=== PATIENT | male | born 1930 | race Caucasian/White ===

== ENCOUNTER 2017-09-06 13:27 | Inpatient (IN) | payer OTHER ==
[~2017-09-06] VITALS: Ht 180.3 cm; Wt 90.3 kg
--- NOTE | ~2017-09-06 | PROC ---
[facility] [address] [place] [address] PROCEDURE REPORT Name: PRASHANT ZUNIGA Room: [address] IN ..#: [id number] Admission: 09/06/17 Attend Phys: Celeste Calvert MD Discharge: Date of : [birth year] Report #: [id number] THIS REPORT FOR: //name// For GI procedure report, please see Provation report in Perceptive 7 content. By: [id number] Records Staff JOHN /KWABENA
[~2017-09-06 13:27] MED LIST: ASPIR 8181 MG; AZOR 10-40 MG1 EACH; BACTRIM DS TAB1 EACH PO; BENICAR40 MG PO; BYSTOLIC 5 MG5 M1 PO; CYMBALTA60 MG PO; DEPAKOTE 250MG250 M1 PO; FENOFIBRATE160 MG PO; FLOMAX0.4 MG PO; HYDROCODONE-AP1 EAC6 PO; LASIX 20 MG TAB20 MG PO; LUMIGAN2.5 M1 OP; MIRAPEX0.125 MG PO; PENTOXIFYLLINE400 MG PO; PRADAXA75 MG PO; PRESERVISION A1 EAC2 PO; PROTONIX40 M1 PO; ZOCOR20 MG PO
[2017-09-06 13:40] VITALS: BP 116/78
[2017-09-06 14:16] LABS: ABSOLUTE LYMPHOCYTES 1.2 thou/uL (0.8-5.3); ABSOLUTE MONOCYTES 0.4 thou/uL (0.0-1.2); ABSOLUTE NEUTROPHILS 4.5 thou/uL (1.6-8.1); BASOPHILS 0.3 %; EOSINOPHILS 0.2 %; HEMATOCRIT 41.3 % (42.0-52.0); HEMOGLOBIN 13.5 gm/dL (14.0-18.0); MCH 31.7 pg (26.0-34.0); MCHC 32.7 g/dL (28.0-37.0); MCV 96.9 fL (80.0-100.0); MONOCYTES 6.2 %; MPV 9.1 fl. (7.2-11.1); NUCLEATED RBCS 0 /100WBC; PLATELET COUNT* 137 thou/uL (150-400); POLYS 73.3 %; RBC 4.26 mil/uL (4.50-6.00); RDW-CV 14.6 % (10.5-14.5); WBC 6.1 thou/uL (4.0-11.0)
[2017-09-06 14:24] LABS: CREATININE 3.5 mg/dL (0.6-1.3); POTASSIUM 4.4 mmol/L (3.5-5.1)
[2017-09-06 14:27] LABS: TROPONIN-I LEVEL 0.12 ng/mL (<0.06)
[2017-09-06 14:31] LABS: APTT 33.8 Seconds (25.0-31.3); INR 1.7; PROTIME 16.3 Seconds (9.20-11.50)
--- NOTE | 2017-09-06 15:47 | EKG ---
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: : 1930 Requested By: Emilie Garcia Order Number: [id number] : Bradly Pisano Measurements Intervals [place] Rate: 114 P: [place]: QRS: 57 QRSD: 93 T: 226 QT: 280 QTc: 386 Interpretive Statements Atrial fibrillation Borderline low voltage, extremity leads Borderline repolarization abnormality Compared to ECG 09/03/2017 10:02:27 No significant changes Electronically Signed On 09-06-2017 15:47:18 HELPDES[employer] TECHNICIAN by Bradly Pisano [email or web address] <ELECTRONICALLY SIGNED> By: Bradly Pisano MD, [facility] 09/06/17 1547 1355 1355 Bradly Pisano MD, [facility] /EPI
[2017-09-06 20:32] LABS: CALCIUM 7.5 mg/dL (8.5-10.1); CREATININE 3.1 mg/dL (0.6-1.3)
[2017-09-06 20:41] VITALS: BP 76/49
[2017-09-06 21:44] LABS: BE -9.4 mmol/L (-2 to +3); HCO3 14.7 mmol/L (22.0-26.0); PCO2 27.2 mmHg (35.0-45.0); PO2 86.1 mmHg (75.0-100.0)
[2017-09-06 22:30] VITALS: BP 75/48
[2017-09-06 23:00] VITALS: BP 86/59
[2017-09-06 23:30] VITALS: BP 84/59
[2017-09-06 23:50] LABS: URINE BLOOD NEGATIVE (Negative); URINE CLARITY CLEAR; URINE COLOR DARK YELLOW; URINE GLUCOSE-RANDOM NEGATIVE (Negative); URINE KETONES TRACE (Negative); URINE LEUKOCYTES-REFLEX NEGATIVE (Negative); URINE NITRITE-REFLEX NEGATIVE (Negative); URINE PROTEIN 1+ (Negative); URINE SPECIFIC GRAVITY 1.025 (1.005-1.030)
[2017-09-06 23:51] LABS: URINE BILIRUBIN 2+ (Negative)
[2017-09-06 23:53] LABS: ICTOTEST (BILI CONFIRMATORY) Negative (Negative)
[2017-09-07] VITALS (25 sets, daily range): BP systolic 74–167; BP diastolic 43–142
[2017-09-07 03:12] LABS: URINE POTASSIUM-RANDOM 71.5 mmol/L
[2017-09-07 04:20] LABS: HEMATOCRIT 33.5 % (42.0-52.0); MCH 31.9 pg (26.0-34.0); MCHC 33.2 g/dL (28.0-37.0); MCV 96.3 fL (80.0-100.0); RBC 3.48 mil/uL (4.50-6.00); RDW-CV 14.6 % (10.5-14.5); WBC 5.8 thou/uL (4.0-11.0)
[2017-09-07 04:24] LABS: HEMOGLOBIN 11.1 gm/dL (14.0-18.0)
[2017-09-07 04:36] LABS: CALCIUM 7.4 mg/dL (8.5-10.1); CREATININE 3.1 mg/dL (0.6-1.3); MAGNESIUM 1.3 mg/dL (1.8-2.4); TOTAL BILIRUBIN 1.3 mg/dL (<0.1-1.0); TOTAL PROTEIN 4.9 g/dL (6.4-8.2)
[2017-09-07 04:58] LABS: APTT 40.6 Seconds (25.0-31.3); INR 2.1
[2017-09-07 16:04] LABS: ALBUMIN 2.4 g/dL (3.4-5.0); CALCIUM 7.5 mg/dL (8.5-10.1); CREATININE 2.9 mg/dL (0.6-1.3); MAGNESIUM 1.4 mg/dL (1.8-2.4); PHOSPHORUS* 2.8 mg/dL (2.5-4.9); POTASSIUM 3.9 mmol/L (3.5-5.1); TOTAL BILIRUBIN 1.3 mg/dL (<0.1-1.0); TOTAL PROTEIN 5.2 g/dL (6.4-8.2)
--- NOTE | 2017-09-07 16:20 | 2DMMODE ---
[place] [address] 2 D/M-MODE ECHOCARDIOGRAM Name: PRASHANT ZUNIGA Room: [address] IN [facility]#: [id number] Admission: 09/06/17 Attend Phys: Celeste Calvert, Discharge: Date of : [birth year] Date of Service: 09/07/17 1620 Report #: [id number] THIS REPORT FOR: //name// APPROVED REPORT Study performed: 09/07/2017 10:15:09 EXAM: Comprehensive 2D, Doppler, and color-flow Echocardiogram Patient Location: In-Patient Room #: 006 Status: routine BSA: 2.02 HR: 95 bpm BP: 85/59 mmHg Rhythm: Atrial Fibrillation Other Information Study Quality: Good Indications Hypotension Dyspnea 2D Dimensions LVEF(%): 62.38 (>50%) IVSd: 11.35 (7-11mm) LVOT Diam: 20.97 (18-24mm) LVDd: 48.16 mm PWd: 11.20 (7-11mm) Ascending Ao: 36.58 (22-36mm) LVDs: 31.93 (25-40mm) Aortic Root: 37.64 mm Kumar's LVEF: 62.38 % Volumes Left Atrial Volume (Systole) LA ESV Index: 75.30 mL/m2 Aortic Valve AoV Peak Geovanny.: 1.34 m/s AO Peak Gr.: 7.14 mmHg LVOT Max P.65 mmHg AO Mean Gr.: 4.37 mmHg LVOT Mean P.33 mmHg LVOT Max V: 0.81 m/s AO V2 VTI: 18.82 cm LVOT Mean V: 0.53 m/s AILYN (VTI): 1.95 cm2 LVOT V1 VTI: 10.64 [place] [address] 2 D/M-MODE ECHOCARDIOGRAM Name: PRASHANT ZUNIGA Room: [address] IN .R.#: [id number] Admission: 09/06/17 Attend Phys: Celeste Calvert, Discharge: Date of : [birth year] Date of Service: 09/07/17 1620 Report #: [id number] E/A Ratio: 2.06 MV Decel. Time: 161.61 ms MV E Max Geovanny.: 1.06 m/s MV PHT: 46.87 ms MVA (PHT): 4.69 cm2 TDI E/Lateral E': 6.63 E/Medial E': 10.60 Medial E' Geovanny.: 0.10 m/s Lateral E' Geovanny.: 0.16 m/s Pulmonary Valve PV Peak Geovanny.: 0.86 m/s PV Peak Gr.: 2.96 mmHg Tricuspid Valve TR Peak Gr.: 43.02 mmHg RVSP: 48.00 mmHg Left Ventricle The left ventricle is normal size. There is normal LV segmental wall motion. There is normal left ventricular wall thickness. Left ventricular systolic function is normal. LVEF is 50-55%. This study is not technically sufficient to allow evaluation of the LV diastolic function due to atrial fibrillation. Right Ventricle Right ventricle is moderately dilated. The right ventricular systolic function is normal. Atria Left atrium is severely dilated. Right atrium is severely dilated. Aortic Valve Mild aortic valve sclerosis. Trace aortic regurgitation. Mild aortic stenosis. Mitral Valve The mitral valve is normal in structure. Trace mitral regurgitation. No evidence of mitral valve stenosis. Tricuspid Valve The tricuspid valve is normal in structure. Moderate tricuspid regurgitation. The RVSP is 45-50 mmHg. Pulmonic Valve The pulmonary valve is normal in structure. [place] [address] 2 D/M-MODE ECHOCARDIOGRAM Name: PRASHANT ZUNIGA Room: [address]#: [id number] Admission: 09/06/17 Attend Phys: Celeste Calvert, Discharge: Date of : [birth year] Date of Service: 09/07/17 1620 Report #: [id number] valvular regurgitation. Great Vessels The aortic root is normal in size. IVC is not well visualized. Pericardium There is no pericardial effusion. <Conclusion> The left ventricle is normal size. There is normal left ventricular wall thickness. Left ventricular systolic function is normal. LVEF is 50-55%. This study is not technically sufficient to allow evaluation of the LV diastolic function due to atrial fibrillation. Right ventricle is moderately dilated. Left atrium is severely dilated. Right atrium is severely dilated. Moderate tricuspid regurgitation. The RVSP is 45-50 mmHg. <ELECTRONICALLY SIGNED> By: José Villanueva MD, FACC 09/07/17 1620 19 19 José Villanueva MD, FACC /INF
[2017-09-08] VITALS (40 sets, daily range): BP systolic 94–141; BP diastolic 47–97
[2017-09-08 06:49] LABS: ALBUMIN 2.4 g/dL (3.4-5.0); CALCIUM 7.3 mg/dL (8.5-10.1); CREATININE 2.5 mg/dL (0.6-1.3); TOTAL BILIRUBIN 1.2 mg/dL (<0.1-1.0); TOTAL PROTEIN 4.9 g/dL (6.4-8.2)
[2017-09-08 12:06] LABS: HEPATITIS B SURFACE AG Negative (Negative)
[2017-09-09] VITALS (28 sets, daily range): BP systolic 103–151; BP diastolic 59–100
[2017-09-09 04:55] LABS: HEMATOCRIT 28.5 % (42.0-52.0); HEMOGLOBIN 9.4 gm/dL (14.0-18.0); MCH 31.5 pg (26.0-34.0); MCHC 32.9 g/dL (28.0-37.0); MCV 95.9 fL (80.0-100.0); MPV 8.9 fl. (7.2-11.1); RBC 2.97 mil/uL (4.50-6.00); RDW-CV 15.1 % (10.5-14.5); WBC 5.7 thou/uL (4.0-11.0)
[2017-09-09 05:40] LABS: CALCIUM 7.6 mg/dL (8.5-10.1); CREATININE 1.9 mg/dL (0.6-1.3); POTASSIUM 3.5 mmol/L (3.5-5.1)
--- NOTE | 2017-09-09 06:08 | CON ---
[address] [address] CONSULTATION Name: EFRAINPRASHANT Shanita Room: [address] IN .R.#: [id number] Admission: 09/06/17 Attend Phys: Celeste Calvert MD Discharge: Date of : [birth year] Report #: [id number] THIS REPORT FOR: //name// CC: Eloy Banks DATE OF SERVICE: 09/08/2017 INFECTIOUS DISEASE CONSULTATION ATTENDING PHYSICIAN: Dr. Calvert REASON FOR EVALUATION: Pneumonitis, abdominal pain, recent laparoscopic cholecystectomy. HISTORY OF PRESENT ILLNESS: Chart reviewed, patient examined. This is an 87 year old, who was recently diagnosed with symptomatic cholelithiasis. On 09/03/2017, underwent laparoscopic cholecystectomy, presented to the Emergency Room with somewhat of progressive dyspnea as well as diffuse abdominal pain. In attempt of questioning, it is not clear that it eased up, only worsen. He does have recent anorexia, perhaps some weight loss. There is no evidence of fevers, due to concerns in lactic acidemia, increased oxygen requirements, he was placed in Intensive Care Unit. He was resuscitated, put on broad-spectrum therapy with piperacillin, tazobactam, more recently vancomycin. He notes he is somewhat improved, although remains tenuous. He is not encephalopathic. ALLERGIES: None known. CURRENT MEDICINES: Vancomycin, tamsulosin, enoxaparin, hydrocortisone, vasopressin as needed, frame of Taxol, multivitamin, divalproex, Zosyn. PAST MEDICAL HISTORY: History of hypertension, peripheral vascular disease, previous left lower extremity stenting, history of renal insufficiency, distal ischemia. SOCIAL HISTORY: Nonsmoker, no ethanol. FAMILY HISTORY: Noncontributory. REVIEW OF SYSTEMS: As above. Generalized diarrhea. PHYSICAL EXAMINATION: GENERAL: Appears chronically ill, undernourished, is in moderate distress secondary to pain. VITAL SIGNS: Temperature 98.4, pulse 100, respirations 14, [place] [address] CONSULTATION Name: PRASHANT ZUNIGA Room: [address]#: [id number] Admission: 09/06/17 Attend Phys: Celeste Calvert MD Discharge: Date of : [birth year] Report #: [id number] 127/72. SKIN: Warm, dry, no rashes. HEENT: Unremarkable. NECK: Supple. LUNGS: Diminished breath sounds, does have some basilar rales. Few crackles. HEART: Appears to be regular, borderline tachycardic. No appreciated murmur. ABDOMEN: Somewhat distended. There are no overt peritoneal signs. There is a healing stab sites with the previous laparoscopic cholecystectomy. There is some tenderness, although it is not exquisite. GENITOURINARY AND RECTAL: Deferred. LABORATORY DATA: Chest x-ray, minimal free air consistent with the patient recent cholecystectomy, prominence of the hilum. Blood cultures sterile thus far. Electrolytes: Sodium 138, potassium 4, chloride 104, bicarbonate is 21, anion gap of 13. BUN and creatinine 51 and 2.5, glucose of 141. LFTs unremarkable. Albumin 2.4, total protein of 4.9, estimated GFR of 24. Prealbumin 9.0. Review of showed chronic cholecystitis with cholelithiasis. Echo, EF of 50-55%, severely dilated biatrial as well as right ventricle, moderate tricuspid regurgitation. Lactic acid initially was 4.6, repeat was 2.0. Initial white count 6.1, H and H 13.5 and 41.3, platelets of 137. CT abdomen and pelvis confirmed scattered small amount of free air and trace ascites. ASSESSMENT: 1. Pneumonitis, probable aspiration. Poor effort due to abdominal related pain that he states has been ongoing. I agree with empiric combination therapy, can entirely exclude an intraabdominal process, left to monitor expectantly. At this point, I do not think there is any surgical intervention required. We will await pending results. Increase activity as allowed, optimize his nutritional status. <ELECTRONICALLY SIGNED> By: Jared De Souza MD 09/09/17 0608 1632 2105Joterrell De Souza MD /nt
--- NOTE | 2017-09-09 09:06 | CON ---
[address] [address] CONSULTATION Name: EFRAINPRASHANT Shanita Room: [address] IN ..#: [id number] Admission: 09/06/17 Attend Phys: Celeste Calvert MD Discharge: Date of : [birth year] Report #: [id number] THIS REPORT FOR: //name// CC: Eloy Banks DATE OF SERVICE: 09/07/2017 INDICATION: Elevated troponin. HISTORY OF PRESENT ILLNESS: The patient is a very pleasant 87-year-old gentleman who had laparoscopic cholecystectomy 4 days ago. The patient went home, apparently continued to have some abdominal pain and poor p.o. intake. He was readmitted to the hospital yesterday with hypotension and elevated lactate, BUN and creatinine. The patient had a bump in his troponins in this setting. He has chronic atrial fibrillation, but no history of coronary artery disease. He does have severe peripheral vascular disease. In this setting, he denied any significant shortness of breath or chest pain. He was given IV fluids for rehydration and his symptoms have improved. His blood pressure remains borderline. He was transiently treated with norepinephrine drip. 12-lead EKG shows atrial fibrillation with some nonspecific T-wave inversion in the inferolateral leads. PAST MEDICAL HISTORY: 1. Chronic atrial fibrillation. 2. Chronic anticoagulation. 3. History of hypertension. 4. Peripheral vascular disease with intervention to the left lower extremity. 5. Chronic nonhealing ulcer, left big toe. 6. Cholecystectomy 4 days ago laparoscopically. 7. Remote history of tobacco use. 8. GERD. 9. BPH. 10. Hyperlipidemia. FAMILY HISTORY: Noncontributory. SOCIAL HISTORY: The patient quit smoking remotely. He does not drink alcohol. He has a supportive family. REVIEW OF SYSTEMS: Significant for dyspnea, shortness of breath without orthopnea, nausea, vomiting and abdominal discomfort, mild constipation. Otherwise, 14-point review [place] [address] CONSULTATION Name: EFRAINPRASHANT Shanita Room: [address]#: [id number] Admission: 09/06/17 Attend Phys: Celeste Calvert MD Discharge: Date of : [birth year] Report #: [id number] PHYSICAL EXAMINATION: VITAL SIGNS: Blood pressure 96/61, pulse in the 90s and irregular. GENERAL: This is a pleasant elderly male, who is in no distress. Mood and affect appropriate. HEENT: O2 nasal cannula in place. Extraocular muscles intact. Mucous membranes are moist. NECK: Shows no jugular venous distention. I do not appreciate carotid bruit. CHEST: Reveals diminished breath sounds with prolonged expiration without wheezes or rales. CARDIOVASCULAR: Reveals an irregularly irregular rhythm without gallop or murmur. ABDOMEN: Reveals normal bowel sounds. The abdomen is minimally tender without rebound. EXTREMITIES: Show palpable radial pulses. Dorsalis pedis and posterior tibial is not palpable. There are chronic skin changes noted in the feet and lower extremities are cool to touch. There is a nonhealing ulcer on the left great toe. LABORATORY DATA: Reviewed. Sodium 135, potassium 4.0, chloride 103, bicarb 19, BUN 53, creatinine 3.1, serum glucose 117. Troponin on arrival 0.12, subsequently 0.37, 0.69, and now 0.65. White blood cell count 5.8, hemoglobin 11.1, platelet count 119,000. Portable chest x-ray shows no acute process. Echocardiogram ordered and pending. IMPRESSION AND RECOMMENDATIONS: 1. Elevated troponin. Doubt this is due to any acute coronary syndrome as the patient is asymptomatic. He did have transient hypotension, felt to be due to the volume depletion due to poor oral intake postoperatively. This has improved. He is without other cardiac complaint. At this point in time, I would follow up with echocardiogram. I do not recommend further stress testing as he did have recent stress test preoperatively that was low risk. 2. Peripheral vascular disease. Continue to follow with wound care as an outpatient. 3. Hypertension. The patient's blood pressure is somewhat low normal presently. We will follow clinically and make adjustments as needed. 4. Chronic renal insufficiency with acute renal failure. The patient [place] [address] CONSULTATION Name: PRASHANT ZUNIGA Room: [address] IN ..#: [id number] Admission: 09/06/17 Attend Phys: Celeste Calvert MD Discharge: Date of : [birth year] Report #: [id number] 5. Chronic atrial fibrillation, rate adequately controlled at this time. The patient is chronically anticoagulated with Pradaxa. No changes at this time. <ELECTRONICALLY SIGNED> By: José Villanueva MD, FACC 09/09/17 0906 1330 1907Miccristo Villanueva MD, FACC /nt
--- NOTE | 2017-09-09 11:30 | CON ---
[address] [address] CONSULTATION Name: FELICIAYAZMINPRASHANT Shanita Room: [address] IN .R.#: [id number] Admission: 09/06/17 Attend Phys: Celeste Calvert MD Discharge: Date of : [birth year] Report #: [id number] THIS REPORT FOR: //name// CC: Eloy Banks DATE OF SERVICE: 09/06/2017 CHIEF COMPLAINT: Fatigue. HISTORY OF PRESENT ILLNESS: This is an 87-year-old man who underwent laparoscopic cholecystectomy on 09/03/2017. He was discharged the next day without complications. He has been at home. His family notes that he has not eaten or drank much since he has been home. He has had very little appetite. He was then feeling very fatigued and he was brought to the Emergency Department. He was found to have a lactate of 5. White count is normal. Hemoglobin is within normal limits. CT of the abdomen and pelvis demonstrates some scattered free air, which is a normal finding after laparoscopic surgery. He does feel better after he has received IV fluids. PAST MEDICAL HISTORY: Includes atrial fibrillation, coronary artery disease. PAST SURGICAL HISTORY: He has had the above-mentioned laparoscopic cholecystectomy. SOCIAL HISTORY: He lives at home. No tobacco use. PHYSICAL EXAMINATION: GENERAL: He is awake, alert, in no acute distress. He does appear somewhat tired. HEENT: His extraocular movements are intact. Sclerae without icterus. NECK: Supple. CARDIOVASCULAR: Regular rate and rhythm. CHEST: Firm bilaterally. ABDOMEN: Soft. He has incisions, which are healing well. He has appropriate tenderness around his incisions. EXTREMITIES: Without clubbing or cyanosis. NEUROLOGIC: Grossly intact. SKIN: Without rash or jaundice. LABORATORY FINDINGS: Lactate is now 4.6. Sodium is 134, creatinine is 3.5, total bilirubin is 2.0, alkaline phosphatase 72, ALT 32. ASSESSMENT AND PLAN: This is an 87-year-old man after laparoscopic cholecystectomy. I suspect that he became hypovolemic [place] [address] CONSULTATION Name: PRASHANT ZUNIGA Room: [address] IN [facility]#: [id number] Admission: 09/06/17 Attend Phys: Celeste Calvert MD Discharge: Date of : [birth year] Report #: [id number] intake. He is responding to IV fluids. He will be admitted to ICU and monitored. I do not see any complication from surgery at this point. We will follow along with you. <ELECTRONICALLY SIGNED> By: Eloy Singh MD 09/09/17 1130 1708 1745Joemerald Singh MD /nt
[2017-09-10] VITALS (12 sets, daily range): BP systolic 113–150; BP diastolic 67–91
[2017-09-10 05:39] LABS: HEMATOCRIT 28.4 % (42.0-52.0); HEMOGLOBIN 9.4 gm/dL (14.0-18.0); MCH 31.5 pg (26.0-34.0); MCV 95.4 fL (80.0-100.0); MPV 8.8 fl. (7.2-11.1); RBC 2.98 mil/uL (4.50-6.00); WBC 5.7 thou/uL (4.0-11.0)
[2017-09-10 06:33] LABS: ALBUMIN 2.5 g/dL (3.4-5.0); CALCIUM 7.8 mg/dL (8.5-10.1); CREATININE 1.8 mg/dL (0.6-1.3); MAGNESIUM 1.8 mg/dL (1.8-2.4); POTASSIUM 3.6 mmol/L (3.5-5.1); TOTAL BILIRUBIN 0.8 mg/dL (<0.1-1.0)
[2017-09-11] VITALS: BP 136/85
[2017-09-11 04:00] VITALS: BP 111/63; BP 124/69
[2017-09-11 08:00] VITALS: BP 144/90
[2017-09-11 12:15] VITALS: BP 135/73
--- NOTE | 2017-09-11 12:45 | EKG ---
[place] [address] ELECTROCARDIOGRAM REPORT Name: PRASHANT ZUNIGA Room: [address] ADM IN M.R.#: [id number] Admission: 09/06/17 Attend Phys: Celeste Calvert MD Discharge: Date of : [birth year] Report #: [id number] THIS REPORT FOR: //name// [facility] Test Date: 2017-09-11 Test Time: 04:24:54 Pat Name: PRASHANT ZUNIGA Department: Room: [address] Gender: M Cio: 26 : 1930 Requested By: Akhil Bishop Order Number: [id number] Reading MD: José Villanueva Measurements Intervals [place] Rate: 105 P: [place]: QRS: 38 QRSD: 90 T: 206 QT: 340 QTc: 450 Interpretive Statements Atrial fibrillation Paired ventricular premature complexes Low voltage, extremity and precordial leads Borderline repolarization abnormality Compared to ECG 09/06/2017 13:55:28 Ventricular premature complex(es) now present Electronically Signed On 09-11-2017 12:45:42 LABORATORY ANIMAL CARE VETERINARIAN by José Villanueva [email or web address] <ELECTRONICALLY SIGNED> By: José Villanueva MD, FACC 09/11/17 1245 0424 0424 José Villanueva MD, FACC /EPI
[2017-09-11 15:29] VITALS: BP 120/81
[2017-09-11 20:00] VITALS: BP 135/72
[2017-09-12] VITALS (7 sets, daily range): BP systolic 114–138; BP diastolic 62–90
[2017-09-12 12:28] LABS: HEMATOCRIT 30.9 % (42.0-52.0); HEMOGLOBIN 10.2 gm/dL (14.0-18.0); MCH 31.4 pg (26.0-34.0); MCV 95.1 fL (80.0-100.0); RBC 3.25 mil/uL (4.50-6.00); RDW-CV 14.8 % (10.5-14.5)
[2017-09-12 12:40] LABS: CREATININE 1.4 mg/dL (0.6-1.3); MAGNESIUM 1.8 mg/dL (1.8-2.4); POTASSIUM 3.3 mmol/L (3.5-5.1)
[2017-09-13] VITALS (10 sets, daily range): BP systolic 123–156; BP diastolic 71–109
[2017-09-13 04:31] LABS: HEMATOCRIT 28.7 % (42.0-52.0); HEMOGLOBIN 9.5 gm/dL (14.0-18.0); MCH 31.7 pg (26.0-34.0); MCHC 33.1 g/dL (28.0-37.0); MCV 95.7 fL (80.0-100.0); MPV 8.5 fl. (7.2-11.1); RBC 2.99 mil/uL (4.50-6.00); RDW-CV 14.8 % (10.5-14.5); WBC 5.6 thou/uL (4.0-11.0)
[2017-09-13 04:58] LABS: CALCIUM 7.6 mg/dL (8.5-10.1); CREATININE 1.4 mg/dL (0.6-1.3); MAGNESIUM 1.8 mg/dL (1.8-2.4); POTASSIUM 3.7 mmol/L (3.5-5.1)
[2017-09-13 11:45] LABS: ALBUMIN 2.4 g/dL (3.4-5.0); CALCIUM 7.7 mg/dL (8.5-10.1); CREATININE 1.5 mg/dL (0.6-1.3); POTASSIUM 3.9 mmol/L (3.5-5.1); TOTAL BILIRUBIN 0.9 mg/dL (<0.1-1.0); TOTAL PROTEIN 5.2 g/dL (6.4-8.2)
[2017-09-14] VITALS: BP 140/80
[2017-09-14 04:00] VITALS: BP 141/77
[2017-09-14 05:42] LABS: HEMATOCRIT 28.8 % (42.0-52.0); HEMOGLOBIN 9.5 gm/dL (14.0-18.0); MCH 31.4 pg (26.0-34.0); MCV 95.3 fL (80.0-100.0); MPV 8.3 fl. (7.2-11.1); RBC 3.02 mil/uL (4.50-6.00); RDW-CV 14.7 % (10.5-14.5); WBC 6.5 thou/uL (4.0-11.0)
[2017-09-14 06:19] LABS: ALBUMIN 2.1 g/dL (3.4-5.0); CALCIUM 7.5 mg/dL (8.5-10.1); CREATININE 1.2 mg/dL (0.6-1.3); MAGNESIUM 1.8 mg/dL (1.8-2.4); POTASSIUM 3.7 mmol/L (3.5-5.1); TOTAL BILIRUBIN 0.8 mg/dL (<0.1-1.0); TOTAL PROTEIN 4.7 g/dL (6.4-8.2)
[2017-09-14 08:00] VITALS: BP 132/91
[2017-09-14 12:00] VITALS: BP 120/66
[2017-09-14 16:47] LABS: MAGNESIUM 1.8 mg/dL (1.8-2.4); POTASSIUM 3.7 mmol/L (3.5-5.1)
[2017-09-14 16:58] VITALS: BP 145/87
[2017-09-15] VITALS (7 sets, daily range): BP systolic 102–140; BP diastolic 63–83
[2017-09-15 05:29] LABS: HEMATOCRIT 31.6 % (42.0-52.0); HEMOGLOBIN 10.6 gm/dL (14.0-18.0); MCHC 33.6 g/dL (28.0-37.0); MCV 95.2 fL (80.0-100.0); MPV 8.6 fl. (7.2-11.1); RBC 3.32 mil/uL (4.50-6.00); RDW-CV 14.4 % (10.5-14.5); WBC 9.2 thou/uL (4.0-11.0)
[2017-09-15 05:39] LABS: INR 1.3; PROTIME 13.1 Seconds (9.20-11.50)
[2017-09-15 05:56] LABS: ALBUMIN 2.2 g/dL (3.4-5.0); CALCIUM 7.1 mg/dL (8.5-10.1); CREATININE 1.5 mg/dL (0.6-1.3); MAGNESIUM 1.7 mg/dL (1.8-2.4); TOTAL BILIRUBIN 0.8 mg/dL (<0.1-1.0); TOTAL PROTEIN 5.1 g/dL (6.4-8.2)
[2017-09-15 06:01] LABS: POTASSIUM 2.9 mmol/L (3.5-5.1)
--- NOTE | 2017-09-15 14:45 | CON ---
[address] [address] CONSULTATION Name: PRASHANT ZUNIGA Shanita Room: [address] IN ..#: [id number] Admission: 09/06/17 Attend Phys: Celeste Calvert MD Discharge: Date of : [birth year] Report #: [id number] THIS REPORT FOR: //name// CC: Eloy Catalanen Darren DATE OF SERVICE: 09/14/2017 REASON FOR CONSULT: Dysphagia and colonic ileus. REQUESTING PHYSICIAN: Celeste Calvert MD HISTORY OF PRESENT ILLNESS: This is an 87-year-old male with recent history of lap hair, who was discharged after the surgery, but returned to hospital due to excessive weakness. At that time, the patient reports that he was constipated and his constipation continued until today when he had a large bowel movement. He has imaging studies suggestive of colonic ileus. He also complains of dysphagia, mainly to solids. The patient is on chronic anticoagulation therapy for AFib. He had a colonoscopy 5 years ago, but denies ever having any upper endoscopy. PAST MEDICAL HISTORY: Significant for history of AFib, hypertension, peripheral vascular disease with stents in the left leg, hyperlipidemia, GERD, CHF, coronary artery disease, and sepsis. ALLERGIES: No known drug allergy. MEDICATIONS: Please refer to hospital MAR. SOCIAL HISTORY: The patient lives at home with his . Denies tobacco or alcohol use. FAMILY HISTORY: Noncontributory. PHYSICAL EXAMINATION: VITAL SIGNS: Reveals blood pressure of 120/66, respirations 16, pulse 82, and temperature 97.8. LUNGS: Clear. CARDIOVASCULAR: Irregular with regular rate. ABDOMEN: Soft, mildly distended. LABS: Reveal sodium of 148, potassium 3.7, BUN is 40, and creatinine 1.2. Liver function tests are all within normal limit. Albumin is 2.1. BNP is 21,323. INR was 2.1 on September 07. WBC is 6.5 with hemoglobin of 9.5 and [place] 157[place] [address] CONSULTATION Name: PRASHANT ZUNIGA Room: [address] IN [facility].#: [id number] Admission: 09/06/17 Attend Phys: Celeste Calvert MD Discharge: Date of : [birth year] Report #: [id number] IMAGING: CT of abdomen and pelvis was obtained, which was significant for previous history of cholecystectomy. There is resolving postoperative free intraperitoneal gas. There is also possible diffuse colitis noted per this imaging study. KUB 2 days ago showed generalized gaseous distention of the small-bowel suggestive of ileus. ASSESSMENT AND PLAN: The patient with history of gallbladder surgery about 2 weeks ago, who has developed postop ileus and recently had a large bowel movement. We will put him on a low dose motility meds and also consider upper endoscopy since he has dysphagia and difficulty swallowing. We will not dilate his esophagus as his INR is 2.1. We will recheck the INR. <ELECTRONICALLY SIGNED> By: Enid Figueroa MD 09/15/17 1445 1353 1732Enid Figueroa MD /nt
[2017-09-16] VITALS: BP 126/71
[2017-09-16 02:48] LABS: HEMATOCRIT 33.2 % (42.0-52.0); HEMOGLOBIN 11.1 gm/dL (14.0-18.0); MCH 31.9 pg (26.0-34.0); MCHC 33.3 g/dL (28.0-37.0); MCV 95.7 fL (80.0-100.0); MPV 8.4 fl. (7.2-11.1); RBC 3.47 mil/uL (4.50-6.00); RDW-CV 14.5 % (10.5-14.5); WBC 12.9 thou/uL (4.0-11.0)
[2017-09-16 03:19] LABS: ALBUMIN 2.1 g/dL (3.4-5.0); CALCIUM 7.1 mg/dL (8.5-10.1); CREATININE 1.6 mg/dL (0.6-1.3); MAGNESIUM 1.8 mg/dL (1.8-2.4); POTASSIUM 3.5 mmol/L (3.5-5.1); TOTAL BILIRUBIN 0.7 mg/dL (<0.1-1.0); TOTAL PROTEIN 4.9 g/dL (6.4-8.2)
[2017-09-16 04:00] VITALS: BP 109/77
[2017-09-16 08:00] VITALS: BP 129/79
--- NOTE | 2017-09-16 10:40 | CON ---
[address] [address] CONSULTATION Name: FELICIAYAZMINMARAPRASHANT Shanita Room: [address] IN ..#: [id number] Admission: 09/06/17 Attend Phys: Celeste Calvert MD Discharge: Date of : [birth year] Report #: [id number] THIS REPORT FOR: //name// CC: Eloy Banks DATE OF SERVICE: 09/07/2017 REQUESTING PHYSICIAN: Dr. Calvert. REASON FOR CONSULTATION: Acute kidney injury. HISTORY OF PRESENT ILLNESS: The patient is a very pleasant 87-year-old gentleman admitted yesterday with complaints of abdominal pain and not feeling well. He was found to be hypotensive in the Emergency Room. He apparently had laparoscopic cholecystectomy done [address] Singh, so when he came to the Emergency Room, he had diffuse abdominal pain, was very weak. The patient was on Pradaxa for his atrial fibrillation. His creatinine was 3.5 and his blood pressure was in 60s. PAST MEDICAL HISTORY: Significant for: 1. Chronic kidney disease stage 3. 2. History of atrial fibrillation. 3. History of coronary artery disease. 4. History of laparoscopic cholecystectomy on 09/03/2017. SOCIAL HISTORY: No tobacco or alcohol abuse. Lives at home. REVIEW OF SYSTEMS: Positive for abdominal pain and not feeling well, as I mentioned earlier. No fever, no chills, no nausea, no vomiting. He is not depressed. No changes in visual or hearing acuity. PHYSICAL EXAMINATION: GENERAL: He is awake and alert. VITAL SIGNS: Blood pressure now is 90/65, heart rate is 97, temperature 36.9. HEENT: Pupils are round. NECK: Supple. LUNGS: Decreased air movement. CARDIOVASCULAR: Irregular rate. ABDOMEN: Distended and tender, especially in the right upper quadrant. LOWER EXTREMITIES: No edema. LABORATORY DATA: Report revealed serum sodium 135, potassium 4.0, chloride 103, carbon dioxide 19, BUN 53, creatinine 3.1. His hemoglobin is 11.1, white [place] 5[place] [address] CONSULTATION Name: EFRAINPRASHANT Shanita Room: [address]#: [id number] Admission: 09/06/17 Attend Phys: Celeste Calvert MD Discharge: Date of : [birth year] Report #: [id number] ASSESSMENT: An 87-year-old gentleman admitted with abdominal pain and was hypotensive. He is being warmed, resuscitated, he has metabolic acidosis. He has acute kidney injury due to ____ of the kidneys. I will continue with bicarb drip, antibiotics, monitor the patient at this time, there is no immediate need for dialysis. Thank you very much for asking my opinion on acute kidney injury on the patient. <ELECTRONICALLY SIGNED> By: Margy Penny MD 09/16/17 1040 1115 1534AMD JACQUE Saenz
[2017-09-16 11:50] VITALS: BP 90/55
[2017-09-16 16:18] VITALS: BP 117/73
[2017-09-16 20:00] VITALS: BP 118/69
[2017-09-17 00:05] VITALS: BP 120/72
[2017-09-17 04:00] VITALS: BP 108/69
[2017-09-17 04:55] LABS: HEMATOCRIT 30.4 % (42.0-52.0); HEMOGLOBIN 10.3 gm/dL (14.0-18.0); MCH 32.2 pg (26.0-34.0); MCHC 33.8 g/dL (28.0-37.0); MCV 95.1 fL (80.0-100.0); MPV 8.4 fl. (7.2-11.1); RBC 3.2 mil/uL (4.50-6.00); RDW-CV 14.3 % (10.5-14.5); WBC 9.4 thou/uL (4.0-11.0)
[2017-09-17 05:28] LABS: ALBUMIN 1.9 g/dL (3.4-5.0); CALCIUM 7.2 mg/dL (8.5-10.1); CREATININE 1.4 mg/dL (0.6-1.3); POTASSIUM 3.2 mmol/L (3.5-5.1); TOTAL BILIRUBIN 0.7 mg/dL (<0.1-1.0); TOTAL PROTEIN 4.8 g/dL (6.4-8.2)
[2017-09-17 08:00] VITALS: BP 102/62
[2017-09-17 12:11] VITALS: BP 87/56
[2017-09-17] MEDS ORDERED: FLORASTOR250 MG PO (13:27)
[2017-09-17] MEDS ORDERED: FLORANEX TABLE1 EACH PO (13:27)
[2017-09-17] MEDS ORDERED: MEGESTROL400 MG/11 PO (13:31)
[2017-09-17] MEDS ORDERED: MIRALAX17 GM PO (13:32)
[2017-09-17] MEDS ORDERED: TOPROL XL100 MG PO (13:36)
[2017-09-17] MEDS ORDERED: VANCOMYCIN125 MG/2.1 PO (13:39)
[2017-09-17] MEDS ORDERED: LASIX 40 MG TAB40 M2 PO (13:41)
[2017-09-17] MEDS ORDERED: POTASSIUM20 PO (13:42)
[2017-09-17] MEDS ORDERED: MAGOX 400400 MG PO (13:42)
[2017-09-17 13:44] VITALS: BP 92/68
== END 2017-09-17 15:20 | DRG 871 ==
LOC: M.ERS 13:27 → M.ICU 15:29 → M.TBA-ER 15:29 → M.ICU 20:37 → M.2W 09-10 18:34
PROVIDERS: Emergency Medicine Emergency Medical Services; Family Medicine; Internal Medicine; Internal Medicine Gastroenterology; Internal Medicine Nephrology; Personal Emergency Response Attendant; Physician Assistant; ADMIT Internal Medicine
PROC: 02HV33Z Insertion of Infusion Device into Superior Vena Cava, Percutaneous Approach (ICD-10-PCS; principal; 2017-09-06)
DX: A41.9 Sepsis, unspecified organism (principal); K65.9 Peritonitis, unspecified; N17.0 Acute kidney failure with tubular necrosis; K55.059 Acute (reversible) ischemia of intestine, part and extent unspecified; J18.9 Pneumonia, unspecified organism; E43 Unspecified severe protein-calorie malnutrition; J96.01 Acute respiratory failure with hypoxia; G93.40 Encephalopathy, unspecified; E27.40 Unspecified adrenocortical insufficiency; A04.72 Enterocolitis due to Clostridium difficile, not specified as recurrent; I13.0 Hypertensive heart and chronic kidney disease with heart failure and stage 1 through stage 4 chronic kidney disease, or unspecified chronic kidney disease; R65.20 Severe sepsis without septic shock; N18.3 Chronic kidney disease, stage 3 (moderate); I48.2 Chronic atrial fibrillation; I73.9 Peripheral vascular disease, unspecified; K21.9 Gastro-esophageal reflux disease without esophagitis; N40.0 Benign prostatic hyperplasia without lower urinary tract symptoms; E78.5 Hyperlipidemia, unspecified; I95.9 Hypotension, unspecified; E86.9 Volume depletion, unspecified; I50.9 Heart failure, unspecified; E86.0 Dehydration; I27.20 Pulmonary hypertension, unspecified; E83.42 Hypomagnesemia; D69.6 Thrombocytopenia, unspecified; R73.9 Hyperglycemia, unspecified; R45.1 Restlessness and agitation; T38.0X5A Adverse effect of glucocorticoids and synthetic analogues, initial encounter; E87.6 Hypokalemia; Z68.27 Body mass index [BMI] 27.0-27.9, adult; Z90.49 Acquired absence of other specified parts of digestive tract; Z95.5 Presence of coronary angioplasty implant and graft; Z79.01 Long term (current) use of anticoagulants; Z87.891 Personal history of nicotine dependence; Z79.899 Other long term (current) drug therapy

== ENCOUNTER 2017-11-12 19:15 | Emergency (ER) | payer OTHER ==
[~2017-11-12] VITALS: Ht 180.3 cm; Wt 83.0 kg
[~2017-11-12 19:15] MED LIST changes: +FLORANEX TABLE1 EACH PO; +FLORASTOR250 MG PO; +LASIX 40 MG TAB40 M2 PO; +MAGOX 400400 MG PO; +MEGESTROL400 MG/11 PO; +MIRALAX17 GM PO; +POTASSIUM20 PO; +TOPROL XL100 MG PO; +VANCOMYCIN125 MG/2.1 PO
[2017-11-12 19:47] LABS: ABSOLUTE LYMPHOCYTES 1.7 thou/uL (0.8-5.3); ABSOLUTE MONOCYTES 0.3 thou/uL (0.0-1.2); ABSOLUTE NEUTROPHILS 1.5 thou/uL (1.6-8.1); HEMATOCRIT 33.3 % (42.0-52.0); HEMOGLOBIN 10.8 gm/dL (14.0-18.0); LYMPHOCYTES 48.7 %; MCH 30.3 pg (26.0-34.0); MCHC 32.3 g/dL (28.0-37.0); MCV 93.8 fL (80.0-100.0); MONOCYTES 7.5 %; NUCLEATED RBCS 0 /100WBC; PLATELET COUNT* 152 thou/uL (150-400); POLYS 41.8 %; RBC 3.55 mil/uL (4.50-6.00); RDW-CV 16.8 % (10.5-14.5); WBC 3.6 thou/uL (4.0-11.0)
[2017-11-12 19:57] LABS: CALCIUM 8.9 mg/dL (8.5-10.1); CREATININE 1.8 mg/dL (0.6-1.3); POTASSIUM 5.3 mmol/L (3.5-5.1)
[2017-11-12 19:59] LABS: APTT 36.9 Seconds (25.0-31.3); INR 1.3; PROTIME 13.1 Seconds (9.20-11.50)
[2017-11-12 20:52] VITALS: BP 136/82
== END 2017-11-12 21:09 | disposition home or self-care (01) ==
LOC: M.ERS 19:15
PROVIDERS: Nurse Practitioner
DX: S01.01XA Laceration without foreign body of scalp, initial encounter (principal); I10 Essential (primary) hypertension; W18.39XA Other fall on same level, initial encounter; Y93.89 Activity, other specified; Y92.89 Other specified places as the place of occurrence of the external cause; Y99.8 Other external cause status

== ENCOUNTER 2017-11-18 15:35 | Emergency (ER) | payer OTHER ==
[~2017-11-18] VITALS: Ht 180.3 cm; Wt 83.0 kg
[2017-11-18 15:43] VITALS: BP 122/61
== END 2017-11-18 15:58 | disposition home or self-care (01) ==
LOC: M.ERS 15:35
DX: S01.01XD Laceration without foreign body of scalp, subsequent encounter (principal); I10 Essential (primary) hypertension; X58.XXXD Exposure to other specified factors, subsequent encounter

== ENCOUNTER 2017-12-01 18:00 | Emergency (ER) | payer OTHER ==
[~2017-12-01] VITALS: Ht 180.3 cm; Wt 83.5 kg
[2017-12-01 21:37] LABS: ABSOLUTE LYMPHOCYTES 1.6 thou/uL (0.8-5.3); ABSOLUTE MONOCYTES 0.4 thou/uL (0.0-1.2); ABSOLUTE NEUTROPHILS 2.2 thou/uL (1.6-8.1); BASOPHILS 0.7 %; HEMATOCRIT 34.4 % (42.0-52.0); HEMOGLOBIN 11.3 gm/dL (14.0-18.0); LYMPHOCYTES 37.8 %; MCH 30.3 pg (26.0-34.0); MCHC 32.8 g/dL (28.0-37.0); MCV 92.4 fL (80.0-100.0); MONOCYTES 8.9 %; MPV 8.1 fl. (7.2-11.1); NUCLEATED RBCS 0 /100WBC; PLATELET COUNT* 109 thou/uL (150-400); POLYS 51.6 %; RBC 3.72 mil/uL (4.50-6.00); RDW-CV 15.8 % (10.5-14.5); WBC 4.2 thou/uL (4.0-11.0)
[2017-12-01 21:47] LABS: APTT 34.7 Seconds (25.0-31.3); INR 1.3; PROTIME 12.8 Seconds (9.20-11.50)
[2017-12-01 21:48] LABS: CALCIUM 8.4 mg/dL (8.5-10.1); CREATININE 1.7 mg/dL (0.6-1.3); POTASSIUM 4.7 mmol/L (3.5-5.1)
[2017-12-01 22:05] LABS: ALBUMIN 3.2 g/dL (3.4-5.0); TOTAL BILIRUBIN 0.5 mg/dL (<0.1-1.0); TOTAL PROTEIN 6.9 g/dL (6.4-8.2)
[2017-12-01 22:46] VITALS: BP 100/60
== END 2017-12-01 22:46 | disposition short-term general hospital (02) ==
LOC: M.ERS 18:00
PROVIDERS: Nurse Practitioner Family
DX: S22.41XA Multiple fractures of ribs, right side, initial encounter for closed fracture (principal); S01.01XA Laceration without foreign body of scalp, initial encounter; J90 Pleural effusion, not elsewhere classified; I10 Essential (primary) hypertension; I48.91 Unspecified atrial fibrillation; Z90.49 Acquired absence of other specified parts of digestive tract; Z90.89 Acquired absence of other organs; W10.8XXA Fall (on) (from) other stairs and steps, initial encounter; Y93.89 Activity, other specified; Y92.89 Other specified places as the place of occurrence of the external cause; Y99.8 Other external cause status